=== PATIENT | male | born 1945 | race Caucasian/White ===

== ENCOUNTER 2018-05-10 16:31 | Emergency (ER) | payer OTHER ==
[~2018-05-10] VITALS: Ht 182.9 cm; Wt 128.0 kg
[~2018-05-10 16:31] MED LIST: ALEN70SO1 PO; BACL10TA4 PO; CARB1TAB37 PO; DETLA4 PO; FINA5TAB1 PO; FOLI1TAB19 PO; GABA300C PO; GLIP10TA3 PO; HUM SUBQ; MEX2.5 PO; NICA20CA PO; ORE25 PO; TAMS0.4C96 PO
[2018-05-10 17:05] VITALS: BP 147/63
[2018-05-10 18:46] VITALS: BP 146/64
== END 2018-05-10 19:31 | disposition left against medical advice (07) ==
LOC: MED 16:31
DX: Z02.9 Encounter for administrative examinations, unspecified (principal); Z53.21 Procedure and treatment not carried out due to patient leaving prior to being seen by health care provider
CPT/HCPCS: 36415; 85610; 85730; 99281